=== PATIENT | female | born 1985 | race Caucasian/White ===

== ENCOUNTER 2016-11-08 18:01 | Emergency (ER) | payer MEDICAID ==
--- NOTE | 2016-11-08 19:06 | EDM.PDOC ---
ED HPI GENERAL MEDICAL PROBLEM - General Chief Complaint: Respiratory Problem Stated Complaint: CHEST/PELVIS PAIN,SHORT OF BREATH Time Seen by Provider: 11/08/16 18:46 Source of Information: Reports: Patient History Limitations: Reports: No Limitations - History of Present Illness INITIAL COMMENTS - FREE TEXT/NARRATIVE: 31-year-old female presents for evaluation and treatment of chest pain and shortness of breath. She reports that her symptoms started yesterday. She states that the shortness of breath is worse when she is active or partaking in long conversations. She states that she can't catch her breath. No history of any asthma or any other known lung problems. She is also reporting retrosternal chest pain. States that it does not radiate up her neck or down her arm. Reports some radiation toward back. She states that she took an Ativan yesterday which significantly helped with her chest pain and shortness of breath. She reports associated symptoms of lightheadedness. Denies any dizziness or syncope. Patient denies any swelling in her lower legs. She reports some pain in her foot radiating up into her right Achilles. She reports that she recently relocated to [place] from [place]. She states that she arrived only yesterday. No history of any previous blood clots or any bleeding disorders. patient also reports pelvic pain. She reports that her last menstrual period was the first or second week of August. She states 2 weeks ago she took an at home test which was positive. She reports sporadic sharp pelvic pain bilaterally. No vaginal bleeding, vaginal discharge, dysuria or hematuria. She is reporting some breast tenderness, fatigue and heartburn. She is a . She states she had twins in 2013. 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 She first child was also adopted and her second child is living with his father. She has not yet seen OB for this . Location: Reports: Chest, Pelvis - Related Data Allergies Allergy/AdvReac Type Severity Reaction Status Date / Time prochlorperazine Allergy Tremors Verified 11/08/16 18:15 [From Compazine] Home Meds: Home Meds . [No Known Home Meds] 11/08/16 [History] Past Medical History - Past Health History Medical/Surgical History: Denies Medical/Surgical History Social & Family History - Tobacco Use Smoking Status *Q: Former Smoker Used Tobacco, but Quit: Yes Month Tobacco Last Used: 09/2016 - Caffeine Use Caffeine Use: Reports: Coffee - Recreational Drug Use Recreational Drug Use: No ED ROS GENERAL - Review of Systems Review Of Systems: See Below Constitutional: Reports: Fatigue Respiratory: Reports: Shortness of Breath Cardiovascular: Reports: Chest Pain GI/Abdominal: Reports: Nausea, Other (heartburn). Denies: Abdominal Pain, Vomiting : Reports: Pain (bilateral pelvic pain), Other (no vaginal discharge, no vaginal bleeding). Denies: Dysuria, Hematuria Musculoskeletal: Reports: Back Pain (mid back), Foot Pain (right foot to right achilles tendon; no calf pain). Denies: Leg Pain Neurological: Denies: Dizziness, Syncope ED EXAM, GENERAL - Physical Exam Exam: See Below Exam Limited By: No Limitations General Appearance: Alert, WD/WN, No Apparent Distress Ears: Normal External Exam Nose: Normal Inspection Throat/Mouth: Normal Inspection, Normal Voice, No Airway Compromise Neck: Normal Inspection Respiratory/Chest: No Respiratory Distress, Lungs Clear, Normal Breath Sounds Cardiovascular: Normal Peripheral Pulses, Regular Rate, Rhythm, No Murmur Peripheral Pulses: 2+: Radial (L), Radial (R), Posterior Tibial (L), Posterior Tibial (R), Dorsalis Pedis (L), Dorsalis Pedis (R) GI/Abdominal: Normal Bowel Sounds, Soft, Non-Tender Extremities: Normal Inspection, Normal Capillary Refill. No: Brandi's Sign Neurological: Alert, Oriented, Normal Cognition Psychiatric: Normal Affect, Normal Mood Skin Exam: Warm, Dry, Normal Color EKG INTERPRETATION EKG Date: 11/08/16 Time: 18:55 Rhythm: NSR Rate (Beats/Min): 89 [place]: Normal P-Wave: Present QRS: Normal ST-T: Normal QT: Normal EKG Interpretation Comments: NSR at 89 bpm. No acute changes. Reviewed by myself and Dr. Gagnon. Course - Vital Signs Last Recorded V/S: Last Vital Signs Temp 36.9 C 11/08/16 18:12 Pulse 87 11/08/16 21:18 Resp 18 11/08/16 21:18 BP 120/84 11/08/16 21:18 Pulse Ox 100 11/08/16 21:18 - Orders/Labs/Meds Orders: Active Orders 24 hr Category Date Time Status Cardiac Monitoring [RC] . DIRECTED Care 11/08/16 18:41 Active EKG Documentation Completion [RC] STAT Care 11/08/16 18:41 Active Labs: Laboratory Tests 11/08/16 11/08/16 11/08/16 Range/Units 19:00 19:15 19:15 WBC 9.61 (3.98-10.04) K/mm3 RBC 4.09 (3.98-5.22) M/mm3 Hgb 13.5 (11.2-15.7) gm/L Hct 40.5 (34.1-44.9) % MCV 99.0 H (79.4-94.8) fl MCH 33.0 H (25.6-32.2) pg MCHC 33.3 (32.2-35.5) g/dl RDW Std Deviation 43.1 (36.4-46.3) fL Plt Count 274 (182-369) K/mm3 MPV 10.5 (9.4-12.3) fl Neut % (Auto) 68.3 (34.0-71.1) % Lymph % (Auto) 20.4 (19.3-51.7) % [place] % (Auto) 8.8 (4.7-12.5) % Eos % (Auto) 1.8 (0.7-5.8) Baso % (Auto) 0.4 (0.1-1.2) % Neut # (Auto) 6.56 H (1.56-6.13) K/mm3 Lymph # (Auto) 1.96 (1.18-3.74) K/mm3 [place] # (Auto) 0.85 H (0.24-0.36) K/mm3 Eos # (Auto) 0.17 (0.04-0.36) K/mm3 Baso # (Auto) 0.04 (0.01-0.08) K/mm3 Sodium 137 (136-145) mEq/L Potassium 4.0 (3.5-5.1) mEq/L Chloride 102 (98-107) mEq/L Carbon Dioxide 30 (21-32) mEq/L Anion Gap 9.0 (5-15) BUN 17 (7-18) mg/dL Creatinine 0.8 (0.55-1.02) mg/dL Est Cr Clr Drug Dosing 83.20 mL/min Estimated GFR (MDRD) > 60 (>60) mL/min BUN/Creatinine Ratio 21.3 H (14-18) Glucose 82 (74-106) mg/dL Calcium 8.9 (8.5-10.1) mg/dL Total Bilirubin 0.3 (0.2-1.0) mg/dL AST 15 (15-37) U/L ALT 25 (14-59) U/L Alkaline Phosphatase 87 (46-116) U/L Total Protein 7.0 (6.4-8.2) g/dl Albumin 3.7 (3.4-5.0) g/dl Globulin 3.3 gm/dL Albumin/Globulin Ratio 1.1 (1-2) HCG, Quant mIU/mL Urine Color Light yellow (Yellow) Urine Appearance Clear (Clear) Urine pH 7.0 (5.0-8.0) Ur Specific [place] 1.020 (1.005-1.030) Urine Protein Negative (Negative) Urine Glucose (UA) Negative (Negative) Urine Ketones Negative (Negative) Urine Occult Blood Negative (Negative) Urine Nitrite Negative (Negative) Urine Bilirubin Negative (Negative) Urine Urobilinogen 0.2 (0.2-1.0) Ur Leukocyte Esterase Negative (Negative) Urine RBC Not seen (0-5) /hpf Urine WBC 0-5 (0-5) /hpf Ur Epithelial Cells 0-5 (0-5) /hpf Urine Bacteria Not seen (FEW) /hpf Urine Mucus Not seen (FEW) /hpf //17 Range/Units 19:15 WBC (3.98-10.04) K/mm3 RBC (3.98-5.22) M/mm3 Hgb (11.2-15.7) gm/L Hct (34.1-44.9) % MCV (79.4-94.8) fl MCH (25.6-32.2) pg MCHC (32.2-35.5) g/dl RDW Std Deviation (36.4-46.3) fL Plt Count (182-369) K/mm3 MPV (9.4-12.3) fl Neut % (Auto) (34.0-71.1) % Lymph % (Auto) (19.3-51.7) % [place] % (Auto) (4.7-12.5) % Eos % (Auto) (0.7-5.8) Baso % (Auto) (0.1-1.2) % Neut # (Auto) (1.56-6.13) K/mm3 Lymph # (Auto) (1.18-3.74) K/mm3 [place] # (Auto) (0.24-0.36) K/mm3 Eos # (Auto) (0.04-0.36) K/mm3 Baso # (Auto) (0.01-0.08) K/mm3 Sodium (136-145) mEq/L Potassium (3.5-5.1) mEq/L Chloride (98-107) mEq/L Carbon Dioxide (21-32) mEq/L Anion Gap (5-15) BUN (7-18) mg/dL Creatinine (0.55-1.02) mg/dL Est Cr Clr Drug Dosing mL/min Estimated GFR (MDRD) (>60) mL/min BUN/Creatinine Ratio (14-18) Glucose (74-106) mg/dL Calcium (8.5-10.1) mg/dL Total Bilirubin (0.2-1.0) mg/dL AST (15-37) U/L ALT (14-59) U/L Alkaline Phosphatase (46-116) U/L Total Protein (6.4-8.2) g/dl Albumin (3.4-5.0) g/dl Globulin gm/dL Albumin/Globulin Ratio (1-2) HCG, Quant 93578.0 mIU/mL Urine Color (Yellow) Urine Appearance (Clear) Urine pH (5.0-8.0) Ur Specific [place] (1.005-1.030) Urine Protein (Negative) Urine Glucose (UA) (Negative) Urine Ketones (Negative) Urine Occult Blood (Negative) Urine Nitrite (Negative) Urine Bilirubin (Negative) Urine Urobilinogen (0.2-1.0) Ur Leukocyte Esterase (Negative) Urine RBC (0-5) /hpf Urine WBC (0-5) /hpf Ur Epithelial Cells (0-5) /hpf Urine Bacteria (FEW) /hpf Urine Mucus (FEW) /hpf - Re-Assessments/Exams Free Text/Narrative Re-Assessment/Exam: 11/08/16 20:35 Labs returned. wbc is 9.61, hgb is 13.5 and plts are 274 sodium is 137, potassium is 4.0 and chloride is 102. anion gap is 9.0. Creatinine is 0.8. Glucose is 82 HCG is 25,761 UA is negative for blood, leuks, nitrites, protein, glucose and ketones I reviewed the labs and ekg with the patient. She has no history of blood clots. I had the nurse walk her with a pulse ox. Heart rate went up to 104 on one occasions but was mostly in the 90s. She was 95% on room air, at her lowest. I feel that she has a very low likelihood of pulmonary embolus. D-dimer will most likely be elevated given she is . I feel that we can safely defer any imaging of her chest including a chest x-ray and CT pulmonary angiogram at this time. I will have the patient obtain an OB ultrasound as an outpatient. She is not having vaginal bleeding. Her quantitative is elevated. She is likely about 8 weeks . This puts her ATTILA at 2--18. Discharge instructions as documented. Departure - Departure Time of Disposition: 20:45 Disposition: Home, Self-Care 01 Condition: Good Clinical Impression: - Discharge Information Instructions: First Trimester of , [id number] Referrals: PCP,Not In Area [Primary Care Provider] - Donell Mcbride MD [Physician] - Forms: ED Department Discharge Additional Instructions: An order has been placed for you to have an ultrasound to help establish dates and evaluate your current . Please call [phone] ad ask for radiology to schedule this. [id number] Tylenol as needed for pain. No ibuprofen, NSAIDs, Aleve, aspirin, etc. while you are . If your are not already doing so, I recommend you start a vitamin with folic acid. Follow-up with OB this week. Recommend Dr. Mcbride or Dr. Franklin. Please call to schedule with either Doctor or their nurse practitioner, Brittni Zelaya. Please return to the ER if your symptoms change or worsen. - My Orders Last 24 Hours: My Active Orders 11/08/16 18:41 Cardiac Monitoring [RC] . DIRECTED EKG Documentation Completion [RC] STAT - Assessment/Plan Last 24 Hours: My Active Orders 11/08/16 18:41 Cardiac Monitoring [RC] . DIRECTED EKG Documentation Completion [RC] STAT
[2016-11-08 21:19] VITALS: BP 120/84
== END 2016-11-08 20:55 | disposition home or self-care (01) ==
LOC: JD.ED 18:01
DX: O99.89 Other specified diseases and conditions complicating pregnancy, childbirth and the puerperium (principal); Z88.8 Allergy status to other drugs, medicaments and biological substances; Z87.891 Personal history of nicotine dependence
CPT/HCPCS: 36415; 80053; 81001; 84702; 85025; 93005; 99284; 99285-25